=== PATIENT | male | born 1960 | race Hispanic/Latino ===

== ENCOUNTER 2020-07-09 19:27 | Emergency (ER) | payer OTHER ==
[2020-07-09 23:26] LABS: Bilirubin,Urine NEG (Negative); Blood,Urine NEG (Negative); Color,Urine Yellow (Yellow); Mucus,Urine FEW /HPF; Protein,Urine <15 mg/dL mg/dL (Negative); Urobilinogen,Urine < 2.0 mg/dL (<2.0)
[2020-07-09 23:45] LABS: Basophils # (Auto) 0.2 K/mm3 (0.0-0.1); Basophils % (Auto) 1.1 % (0.0-1.8); Eosinophils # (Auto) 0.1 K/mm3 (0.0-0.4); Eosinophils % (Auto) 0.9 % (0.0-4.3); Hematocrit 45.3 % (35.5-45.6); Hemoglobin 15.5 gm/dl (11.8-15.2); Lymphocytes # (Auto) 1.7 K/mm3 (1.2-5.4); Lymphocytes % (Auto) 10.9 % (13.4-35.0); Mean Corpuscular HGB Conc 34 % (32-34); Mean Corpuscular Volume 89 fl (84-94); Monocytes # (Auto) 1.1 K/mm3 (0.0-0.8); Monocytes % (Auto) 6.9 % (0.0-7.3); Platelet Count 257 K/mm3 (140-440); Red Blood Count 5.09 M/mm3 (3.65-5.03)
[2020-07-10 00:03] LABS: Alanine Aminotransferase 26 units/L (7-56); Albumin 4.3 g/dL (3.9-5); BUN/Creatinine Ratio 15; Blood Urea Nitrogen 18 mg/dL (9-20); Calcium 9.7 mg/dL (8.4-10.2); Hemolysis Index 7
[2020-07-10] MEDS ORDERED: MORPHINE 4 MG/1 ML INJ IV ONE (01:36)
[2020-07-10] MEDS ORDERED: FAMOTIDINE 20 MG/2 ML INJ IV ONE (01:36)
[2020-07-10] MEDS ORDERED: ONDANSETRON 4 MG/2 ML INJ IV ONE (01:36)
[2020-07-10] MEDS ORDERED: SODIUM CHLORIDE 0.9% 1000 ML 1,000 ML IV ONE (01:36)
--- NOTE | 2020-07-10 02:20 | Cat Scan Report ---
CT ABDOMEN AND PELVIS WITH IV CONTRAST INDICATION: RUQ Abdominal pain. COMPARISON: None available. TECHNIQUE: All CT scans at this facility use dose modulation, automated exposure control, iterative reconstructi on or weight based dosing, when appropriate, to reduce radiation dose to as low as reasonably achieva ble. FINDINGS: Lung Bases: No acute findings. There is a partially calcified 1.6 cm nodule in the lateral left lung base. This could be granulomatous or hamartoma. Skeletal System: No acute abnormality. There is partial fusion at the SI joints. ABDOMEN: Liver: Steatosis. The liver is mildly enlarged. Gallbladder: No significant abnormality. Bile Ducts: No significant abnormality. Pancreas: No significant abnormality. Spleen: No significant abnormality. Adrenals: No significant abnormality. Right Kidney: No significant abnormality. Left Kidney: No significant abnormality. Upper GI tract: Distal duodenum/proximal jejunum are thick-walled with mild adjacent mesenteric adeno georgette and stranding (axial series 2 images 68-82). Lymph Nodes: No significant adenopathy. Aorta: No significant abnormality. Additional Findings: No significant abnormality. PELVIS: Colon: No acute abnormality. Urinary Bladder and Distal Ureters: No significant abnormality. Appendix: No significant abnormality. Lymph Nodes: No significant adenopathy. Additional Findings: Left common and external iliac arteries are diminutive. The right external iliac artery is also diminutive. IMPRESSION: 1. Focal inflammation at the distal duodenum/proximal jejunum. These findings may be due to enteriti s. Endoscopy is recommended. 2. Incidental findings, as above. Signer Name: Delvis Lundberg MD Signed: 07/10/2020 2:15 AM Workstation Name: [id number]
--- NOTE | 2020-07-10 03:32 | Emergency Department Report ---
ED Abdominal Pain HPI - General Chief Complaint: Abdominal Pain Stated Complaint: ABDOMINAL PAIN Source: patient Mode of arrival: Ambulatory Limitations: No Limitations - History of Present Illness Initial Comments: Patient is a 60-year-old white male with a history of hyperlipidemia and hypertension who as well as chronic alcohol abuse who presents to the ED with complaint of acute onset persistent severe epigastric pain that radiates to the right upper quadrant and periumbilical area with intractable nausea and vomiting for the last 3 weeks worse with food intake. Patient states that the pain is burning and sharp in character and gets worse whenever he tries to eat or drink anything. Patient states that in the last 12 hours, the nausea and vomiting has been worse and intractable and that he has not been able to keep anything down. Patient denies hematemesis, hematochezia, diarrhea, dizziness, syncope, chest pain, shortness of breath, dysuria, urinary frequency and urgency, sore throat, headache, lightheadedness, change in vision, hematuria or testicular pain, fever and chills. MD Complaint: abdominal pain, other (nausea and vomiting) -: Sudden, week(s) (3) Location: periumbilical, RUQ, epigastric Radiation: RUQ, epigastric Migration to: no migration Severity scale (0 -10): 6 Quality: aching, sharp, burning Consistency: constant Improves With: nothing Worsens With: eating, vomiting Context: other (Chronic alcohol abuse) Associated Symptoms: denies other symptoms, nausea, vomiting, anorexia. denies: diarrhea, fever, dysuria, hematemesis, hematochezia, melena, hematuria, syncope, other - Related Data Previous Rx's Medication Instructions Recorded Last Taken Type Cyclobenzaprine [Flexeril] 10 mg PO TID PRN #15 tablet 08/23/16 Unknown Rx Ibuprofen [Motrin 800 MG tab] 800 mg PO Q8HR PRN #25 tablet 08/23/16 Unknown Rx Dicyclomine [Bentyl] 20 mg PO Q6H PRN #30 tablet 07/10/20 Unknown Rx Famotidine [Pepcid] 20 mg PO BID #60 tablet 07/10/20 Unknown Rx Omeprazole 40 mg PO DAILY #30 capsule. 07/10/20 Unknown Rx Ondansetron [Zofran Odt] 4 mg PO Q6HR PRN #20 tab.rapdis 07/10/20 Unknown Rx Allergies Allergy/AdvReac Type Severity Reaction Status Date / Time No Known Allergies Allergy Verified 08/23/16 08:43 ED Review of Systems ROS: Stated complaint: ABDOMINAL PAIN Other details as noted in HPI Constitutional: denies: chills, fever Eyes: denies: eye pain, eye discharge, vision change ENT: denies: ear pain, throat pain Respiratory: denies: cough, shortness of breath, wheezing Cardiovascular: denies: chest pain, palpitations Endocrine: no symptoms reported Gastrointestinal: abdominal pain (Epigastric, right upper quadrant pain), nausea, vomiting. denies: diarrhea, constipation, hematemesis, melena, hematochezia Genitourinary: denies: urgency, dysuria Musculoskeletal: denies: back pain, joint swelling, arthralgia Skin: denies: rash, lesions Neurological: denies: headache, weakness, paresthesias Psychiatric: denies: anxiety, depression Hematological/Lymphatic: denies: easy bleeding, easy bruising ED Past Medical Hx - Past Medical History Previous Medical History?: Yes Hx Hypertension: Yes Additional medical history: ELEVATED CHOLESTEROL - Social History Smoking Status: Never Smoker Substance Use Type: None - Medications Home Medications: Home Medications Medication Instructions Recorded Confirmed Last Taken Type Cyclobenzaprine [Flexeril] 10 mg PO TID PRN #15 tablet 08/23/16 Unknown Rx Ibuprofen [Motrin 800 MG tab] 800 mg PO Q8HR PRN #25 tablet 08/23/16 Unknown Rx Dicyclomine [Bentyl] 20 mg PO Q6H PRN #30 tablet 07/10/20 Unknown Rx Famotidine [Pepcid] 20 mg PO BID #60 tablet 07/10/20 Unknown Rx Omeprazole 40 mg PO DAILY #30 capsule.dr 07/10/20 Unknown Rx Ondansetron [Zofran Odt] 4 mg PO Q6HR PRN #20 tab.rapdis 07/10/20 Unknown Rx ED Physical Exam - General Limitations: No Limitations General appearance: alert, in no apparent distress - Head Head exam: Present: atraumatic, normocephalic, normal inspection - Eye Eye exam: Present: normal appearance, PERRL, EOMI Pupils: Present: normal accommodation - ENT ENT exam: Present: normal exam, normal orophraynx, mucous membranes moist, TM's normal bilaterally, normal external ear exam - Neck Neck exam: Present: normal inspection, full ROM - Respiratory Respiratory exam: Present: normal lung sounds bilaterally. Absent: respiratory distress, wheezes, rales, rhonchi, chest wall tenderness, accessory muscle use, decreased breath sounds, prolonged expiratory - Cardiovascular Cardiovascular Exam: Present: regular rate, normal rhythm, normal heart sounds. Absent: systolic murmur, diastolic murmur, rubs, gallop - GI/Abdominal GI/Abdominal exam: Present: soft, tenderness (Palpable epigastric and right upper quadrant tenderness with no guarding or rebound), normal bowel sounds. Absent: guarding, rebound, hyperactive bowel sounds, hypoactive bowel sounds - Extremities Exam Extremities exam: Present: normal inspection, full ROM, normal capillary refill - Back Exam Back exam: Present: normal inspection, full ROM. Absent: tenderness, CVA tenderness (R), CVA tenderness (L), muscle spasm, paraspinal tenderness, vertebral tenderness - Neurological Exam Neurological exam: Present: alert, oriented X3, CN II-XII intact, normal gait, reflexes normal - Psychiatric Psychiatric exam: Present: normal affect, normal mood - Skin Skin exam: Present: warm, dry, intact, normal color. Absent: rash ED Course Vital Signs 07/09/20 21:35 Temperature 98.2 F Pulse Rate 96 H Respiratory 18 Rate Blood Pressure 144/75 O2 Sat by Pulse 98 Oximetry ED Medical Decision Making - Lab Data Result diagrams: 07/09/20 23:11 07/09/20 23:11 - Radiology Data Radiology results: report reviewed, [place] [address] Cat Scan Report Signed Patient: SARAH FARLEY MR#: [id number] : 1960 Acct:[id number] Age/Sex: 60 / M ADM Date: 07/09/20 Loc: ED Attending Dr: Ordering Physician: CARLITA ORDOÑEZ Date of Service: 07/10/20 Procedure(s): CT abdomen pelvis w con Accession Number(s): [id number] cc: CARLITA ORDOÑEZ CT ABDOMEN AND PELVIS WITH IV CONTRAST INDICATION: RUQ Abdominal pain. COMPARISON: None available. TECHNIQUE: All CT scans at this facility use dose modulation, automated exposure control, iterative reconstruction or weight based dosing, when appropriate, to reduce radiation dose to as low as reasonably achievable. FINDINGS: Lung Bases: No acute findings. There is a partially calcified 1.6 cm nodule in the lateral left lung base. This could be granulomatous or hamartoma. Skeletal System: No acute abnormality. There is partial fusion at the SI joints. ABDOMEN: Liver: Steatosis. The liver is mildly enlarged. Gallbladder: No significant abnormality. Bile Ducts: No significant abnormality. Pancreas: No significant abnormality. Spleen: No significant abnormality. Adrenals: No significant abnormality. Right Kidney: No significant abnormality. Left Kidney: No significant abnormality. Upper GI tract: Distal duodenum/proximal jejunum are thick-walled with mild adjacent mesenteric adenopathy and stranding (axial series 2 images 68-82). Lymph Nodes: No significant adenopathy. Aorta: No significant abnormality. Additional Findings: No significant abnormality. PELVIS: Colon: No acute abnormality. Urinary Bladder and Distal Ureters: No significant abnormality. Appendix: No significant abnormality. Lymph Nodes: No significant adenopathy. Additional Findings: Left common and external iliac arteries are diminutive. The right external iliac artery is also diminutive. IMPRESSION: 1. Focal inflammation at the distal duodenum/proximal jejunum. These findings may be due to enteritis. Endoscopy is recommended. 2. Incidental findings, as above. Signer Name: Delvis Lundberg MD Signed: 07/10/2020 2:15 AM Workstation Name: [id number] Transcribed By: MANISH Dictated By: Delvis Lundberg MD Electronically Authenticated By: Delvis Lundberg MD Signed Date/Time: 07/10/20214 DD/ 7 TD/TT: - Medical Decision Making This is a 60-year-old white male with a history of hyperlipidemia and hypertension who as well as chronic alcohol abuse who presents to the ED with complaint of acute onset persistent severe epigastric pain that radiates to the right upper quadrant and periumbilical area with intractable nausea and vomiting for the last 3 weeks worse with food intake. Patient states that the pain is burning and sharp in character and gets worse whenever he tries to eat or drink anything. Patient states that in the last 12 hours, the nausea and vomiting has been worse and intractable and that he has not been able to keep anything down. In the ED, patient is alert and oriented x3 and is not in distress. Patient was treated for nausea and vomiting in the ED, and also given pain medication as well as an antacid and normal saline 1 L IV bolus x1. Lab test results were reviewed and showed acute leukocytosis of 15,400 and mild hyponatremia 134 mmol/L. Abdomen pelvis CT scan with contrast showed a focal inflammation at the distal duodenum/proximal jejunum. These findings may be due to enteritis. Endoscopy is recommended. On reevaluation, patient's pain is well controlled medications as well as nausea and vomiting. Patient was discharged home on antacids, antiemetics and antispasmodic pain medications. Patient was given a referral to the [facility], specifically to Dr. Donte Ayon for follow-up and possible endoscopy. Patient verbalized understanding of the implications of the diagnosis and promised to give a call to Dr. Ayon's office first thing this morning July 10, 2020 to schedule a follow-up appointment. Patient was advised to return to the ED immediately if symptoms get worse. - Differential Diagnosis GERD; gallstones; cholecystitis; PUD; gastritis; gastroenteritis; pancreati Critical care attestation.: If time is entered above; I have spent that time in minutes in the direct care of this critically ill patient, excluding procedure time. ED Disposition Clinical Impression: Acute epigastric pain, Nausea and vomiting in adult patient, Peptic ulcer disease Disposition: [id number] TO HOME OR SELFCARE Is pt being admited?: No Does the pt Need Aspirin: No Condition: Stable Instructions: Diet for Ulcers and Gastritis (ED), Acute Abdominal Pain (ED), Gastroesophageal Reflux Disease (ED), Gastritis (ED), Acute Nausea and Vomiting (ED) Additional Instructions: Maintain a clear liquid diet for 12 to 24 hours, take medication for nausea and vomiting as well as antacids and pain medications as advised. Follow-up with the GI physician Dr. Donte Ayon as advised. Contact Dr. Ayon's office first thing this morning July 10, 2020 to schedule a follow-up appointment. Return to the ED immediately if symptoms get worse. Prescriptions: Dicyclomine [Bentyl] 20 mg PO Q6H PRN #30 tablet PRN Reason: Abdominal pain Omeprazole 40 mg PO DAILY #30 capsule. Famotidine [Pepcid] 20 mg PO BID #60 tablet Ondansetron [Zofran Odt] 4 mg PO Q6HR PRN #20 tab.rapdis PRN Reason: Nausea Referrals: DONTE AYON MD [Staff Physician] - 3-5 Days Forms: Work/School Release Form(ED) Time of Disposition: 03:43 Print Language: [employer]
[2020-07-10 06:47] VITALS: BP 140/86
== END 2020-07-10 04:00 | disposition home or self-care (01) ==
LOC: ED 19:27
DX: K27.9 Peptic ulcer, site unspecified, unspecified as acute or chronic, without hemorrhage or perforation (principal); R10.13 Epigastric pain; R11.2 Nausea with vomiting, unspecified; I10 Essential (primary) hypertension; Z79.899 Other long term (current) drug therapy
CPT/HCPCS: 36415; 74177; 80053; 81001; 83690; 85025; 96361; 96374; 96375; 99284; J2270; J2405; J7030; Q9967